=== PATIENT | female | born 1995 ===

== ENCOUNTER 2017-03-31 17:17 | Observation (INO) | payer OTHER ==
--- NOTE | 2017-03-31 18:38 | ED PDOC ---
HPI: Skin/Bite Injury Time Seen by Provider: 03/31/17 17:59 Chief Complaint (Nursing): Abnormal Skin Integrity Chief Complaint (Provider): Abnormal Skin Integrity History Per: Patient History/Exam Limitations: no limitations Onset/Duration Of Symptoms: Days Additional Complaint(s): 21 year old female presents to the emergency department with a complaint of a wound located to the medial aspect of the right forearm for several days. Reports she saw her doctor 2 days ago and was prescribed antibiotics which she did not fill. States she sees yellow puss in the wound with redness and swelling around the wound. Denies fever, chills, trauma, or injury. Tetanus shot not up to date. Past Medical History Reviewed: Historical Data, Nursing Documentation, Vital Signs Vital Signs: Last Vital Signs Temp 97.9 F 03/31/17 17:19 Pulse 64 03/31/17 17:19 Resp 16 03/31/17 17:19 BP 123/58 L 03/31/17 17:19 Pulse Ox 100 03/31/17 20:25 - Medical History PMH: Asthma, Gastritis - Surgical History Surgical History: No Surg Hx - Family History Family History: States: Unknown Family Hx - Immunization History Hx Tetanus Toxoid Vaccination: No Hx Influenza Vaccination: No Hx Pneumococcal Vaccination: No - Home Medications Home Medications: Ambulatory Orders Medication Instructions Recorded No Known Home Med 03/31/17 - Allergies Allergies/Adverse Reactions: Allergies Allergy/AdvReac Type Severity Reaction Status Date / Time No Known Allergies Allergy Verified 11/19/13 16:52 Review of Systems ROS Statement: Except As Marked, All Systems Reviewed And Found Negative (As per HPI, otherwise negative) Constitutional: Negative for: Fever, Chills, Other (Trauma) Skin: Positive for: Other (Abscess to the forearm) Physical Exam - Reviewed Nursing Documentation Reviewed: Yes Vital Signs Reviewed: Yes - Physical Exam Appears: Positive for: Non-toxic, No Acute Distress Head Exam: Positive for: ATRAUMATIC, NORMAL INSPECTION, NORMOCEPHALIC Skin: Positive for: Warm, Dry Cardiovascular/Chest: Positive for: Regular Rate, Rhythm. Negative for: Murmur Respiratory: Positive for: Normal Breath Sounds. Negative for: Accessory Muscle Use, Respiratory Distress Gastrointestinal/Abdominal: Positive for: Normal Exam, Soft. Negative for: Tenderness Back: Positive for: Normal Inspection Extremity: Positive for: Normal ROM, Capillary Refill (Intact. Normal distal sensation. Normal pulses. ), Other ([id number] open abscess with no active drainage at the moment with surrounding edema and erythema noted extending passed the elbow down to the right wrist. ) Neurologic/Psych: Positive for: Alert, Oriented (x3) - Laboratory Results Result Diagrams: 03/31/17 19:45 03/31/17 19:45 - ECG O2 Sat by Pulse Oximetry: 100 (RA) Pulse Ox Interpretation: Normal Medical Decision Making Medical Decision Making: Time: 1829 Initial impression: Abscess to the forearm Initial plan: CMP CBC w/ diff Blood Culture Wound Culture Toradol 30 mg IVP Tetanus 0.5 ml IM Vancomycin 1000 mg in 250 ml Sodium Chloride IV Reevaluation Labs reviewed : wbc is 11. Considering history, exam and lab results, plan will be for further inpt observation for continued IV antibiotics. Diagnostic results discussed with the patient in great detail. Diagnosis of cellulitis with abscess discussed with the patient. Patient informed of the necessary plan to keep the patient for further inpatient observation for continued IV antibiotics which she is agreeable to at this time. Case d/w hospitalist Dr. Mart, agrees with plan for inpt admission. Patient states she fully agrees with and understands further plan of care. I have given the patient opportunity to ask any additional questions. Time: 1999 --Admit to hospital routine for Cellulitis and abscess of upper arm and forearm under the care of Dr. Abraham Mart MD Scribe Attestation: Documented by Karissa Lopez, acting as a scribe for Jennifer Leo PA-C Provider Scribe Attestation: All medical record entries made by the Scribe were at my direction and personally dictated by me. I have reviewed the chart and agree that the record accurately reflects my personal performance of the history, physical exam, medical decision making, and the department course for this patient. I have also personally directed, reviewed, and agree with the discharge instructions and disposition. Disposition - Clinical Impression Clinical Impression: Cellulitis and abscess of upper arm and forearm - Patient ED Disposition Is Patient to be Admitted: Yes Doctor Will See Patient In The: ED Counseled Patient/Family Regarding: Studies Performed, Diagnosis - Disposition Disposition: Routine/Home Disposition Time: 20:00 Condition: STABLE Forms: [employer] (Moroccan) - PA / NEW PATIENT ESCORT / Resident Statement MD/DO has reviewed & agrees with the documentation as recorded.
[2017-03-31] MEDS ORDERED: Vancomycin 1 g Inj ONE (19:39)
[2017-03-31 19:49] LABS: BASO # 0.1 K/uL (0.0-0.2); BASO % 0.6 % (0.0-2.0); EOS # 0.4 K/uL (0.0-0.7); EOS % 3.4 % (0.0-4.0); HEMOGLOBIN 12.4 g/dL (12.0-16.0); LYMPH # 3.3 K/uL (1.0-4.3); LYMPH % 30.3 % (20.0-40.0); MEAN CELL VOLUME 89.9 fl (81.0-99.0); MEAN CORPUSCULAR HGB CONC 32.2 g/dL (33.0-37.0); MEAN PLATELET VOLUME 9.5 fl (7.2-11.7); MONO # 0.8 K/uL (0.0-0.8); MONO % 7.3 % (0.0-10.0); NEUT # 6.4 K/uL (1.8-7.0); NEUT % 58.4 % (50.0-75.0); NRBC % 0.1 % (0.0-0.0); RBC 4.27 Mil/uL (3.80-5.20); RED CELL DISTRIBUTION WIDTH 13.2 % (11.5-14.5)
[2017-03-31 19:58] LABS: ALB/GLOB RATIO 1.2 (1.0-2.1); ALBUMIN 4.4 g/dL (3.5-5.0); ALT/SGPT 35 U/L (9-52); AST/SGOT 22 U/L (14-36); BLOOD UREA NITROGEN 20 mg/dl (7-17); CALCIUM 9.4 mg/dL (8.4-10.2); GFR AFRICAN-AMERICAN > 60; GFR NON-AFRICAN AMERICAN > 60
--- NOTE | 2017-03-31 20:28 | CP.PCM.HP ---
History of Present Illness - History of Present Illness History of Present Illness: CC: R arm cellulitis HPI: This is a 21 y/o female with MHx significant for asthma who comes in in c/ o redness, warmth, tenderness and oozing wound located on R forearm inferior to the elbow. Patient states the lesion initially appeared about 4-5 days ago, and started to get larger. She noted yellow pus/serosanguinous drainage from the wound. She went to a doctor and was prescribed abx, but she didn't fill them and the symptoms became worse, so she came in. She denies f, but has had chills. No n/v/d. She states that this is the third episode of cellulitis that she has had since Dec of last year. She denies any injuries/bites/abrasions prior to onset of cellulitis this time or on in the past. 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 No other contacts with similar infections. ROS: 14 systems reviewed, negative other than HPI MHx: Asthma SHx: None Allergies: NKDA Medications: None Family Hx: No relevant history on review Social Hx: Lives alone, occasional EtOH, no significant tobacco use Present on Admission - Present on Admission Any Indicators Present on Admission: No Past Patient History - Infectious Disease Hx of Infectious Diseases: None - Past Social History Smoking Status: Current Some Days Smoker - PULMONARY Hx Asthma: Yes - GASTROINTESTINAL Hx Gastritis: Yes - GENITOURINARY/GYNECOLOGICAL Hx Urinary Tract Infection: Yes (recurrant) - PSYCHIATRIC Hx Substance Use: No - SURGICAL HISTORY Hx Surgeries: No - ANESTHESIA Hx Anesthesia: No Hx Anesthesia Reactions: No Hx Malignant Hyperthermia: No Meds Allergies/Adverse Reactions: Allergies Allergy/AdvReac Type Severity Reaction Status Date / Time No Known Allergies Allergy Verified 11/19/13 16:52 Physical Exam - Constitutional Appears: No Acute Distress - Head Exam Head Exam: ATRAUMATIC, NORMOCEPHALIC - Eye Exam Eye Exam: EOMI, PERRL - ENT Exam ENT Exam: Mucous Membranes Moist - Neck Exam Neck exam: Positive for: Full Rom - Respiratory Exam Respiratory Exam: Clear to Auscultation Bilateral, NORMAL BREATHING PATTERN - Cardiovascular Exam Cardiovascular Exam: REGULAR RHYTHM, +S1, +S2 - GI/Abdominal Exam GI & Abdominal Exam: Normal Bowel Sounds, Soft - Extremities Exam Additional comments: RUE with redness/warmth/tenderness right below elbow; yellowish/bloody drainage - Neurological Exam Neurological exam: Alert, CN II-XII Intact, Oriented x3 - Psychiatric Exam Psychiatric exam: Normal Affect, Normal Mood - Skin Skin Exam: Dry, Warm Results - Vital Signs Recent Vital Signs: Last Vital Signs Temp 97.9 F 03/31/17 17:19 Pulse 64 03/31/17 17:19 Resp 16 03/31/17 17:19 BP 123/58 L 03/31/17 17:19 Pulse Ox 100 03/31/17 20:25 - Labs Result Diagrams: 03/31/17 19:45 03/31/17 19:45 Labs: Laboratory Results - last 24 hr 03/31/17 03/31/17 19:45 19:45 WBC 11.0 H RBC 4.27 Hgb 12.4 Hct 38.4 MCV 89.9 MCH 29.0 MCHC 32.2 L RDW 13.2 Plt Count 268 MPV 9.5 Neut % (Auto) 58.4 Lymph % (Auto) 30.3 [place] % (Auto) 7.3 Eos % (Auto) 3.4 Baso % (Auto) 0.6 Neut # 6.4 Lymph # 3.3 [place] # 0.8 Eos # 0.4 Baso # 0.1 Sodium 142 Potassium 3.9 Chloride 102 Carbon Dioxide 27 Anion Gap 17 BUN 20 H Creatinine 0.7 Est GFR ( Amer) > 60 Est GFR (Non-Af Amer) > 60 Random Glucose 99 Calcium 9.4 Total Bilirubin 0.4 AST 22 ALT 35 Alkaline Phosphatase 76 Total Protein 8.1 Albumin 4.4 Globulin 3.7 Albumin/Globulin Ratio 1.2 Assessment & Plan (1) Cellulitis and abscess of upper arm and forearm Assessment and Plan: 21 y/o female with RUE cellulitis/abscess. -Obs/med surg -Continue Vanco 1 g q12h IV -Tylenol/Toradol per scale for pain control -SCDs for DVT PPx Status: Acute
[2017-03-31] MEDS ORDERED: Phenylephrine 0.25% NASAL Spray (15ML) NAS PRN (20:51)
[2017-04-01 01:12] VITALS: RESP 18; O2SAT 97
[2017-04-01 07:06] LABS: BASO % 0.4 % (0.0-2.0); EOS # 0.4 K/uL (0.0-0.7); EOS % 3.7 % (0.0-4.0); HEMOGLOBIN 12.6 g/dL (12.0-16.0); LYMPH % 29.3 % (20.0-40.0); MEAN CELL VOLUME 90.7 fl (81.0-99.0); MEAN CORPUSCULAR HEMOGLOBIN 29.4 pg (27.0-31.0); MEAN CORPUSCULAR HGB CONC 32.4 g/dL (33.0-37.0); MEAN PLATELET VOLUME 9.5 fl (7.2-11.7); MONO # 0.9 K/uL (0.0-0.8); MONO % 8.4 % (0.0-10.0); NEUT % 58.2 % (50.0-75.0); RBC 4.3 Mil/uL (3.80-5.20); RED CELL DISTRIBUTION WIDTH 13.1 % (11.5-14.5); WHITE BLOOD COUNT 10.3 K/uL (4.8-10.8)
[2017-04-01 07:23] LABS: BLOOD UREA NITROGEN 18 mg/dl (7-17); CALCIUM 9.1 mg/dL (8.4-10.2); GFR AFRICAN-AMERICAN > 60; GFR NON-AFRICAN AMERICAN > 60
[2017-04-01 07:52] VITALS: BP 95/54; PULSE 64; TEMP 97.6
--- NOTE | 2017-04-01 10:31 | CP.PCM.DIS ---
Provider - Provider Date of Admission: 03/31/17 20:22 Attending physician: Abraham Mart MD Primary care physician: none Time Spent in preparation of Discharge (in minutes): 15 Hospital Course - Lab Results Lab Results: Most Recent Lab Values WBC 10.3 K/uL (4.8-10.8) 04/01/17 05:30 RBC 4.30 Mil/uL (3.80-5.20) 04/01/17 05:30 Hgb 12.6 g/dL (12.0-16.0) 04/01/17 05:30 Hct 39.0 % (34.0-47.0) 04/01/17 05:30 MCV 90.7 fl (81.0-99.0) 04/01/17 05:30 MCH 29.4 pg (27.0-31.0) 04/01/17 05:30 MCHC 32.4 g/dL (33.0-37.0) L 04/01/17 05:30 RDW 13.1 % (11.5-14.5) 04/01/17 05:30 Plt Count 253 K/uL (130-400) 04/01/17 05:30 MPV 9.5 fl (7.2-11.7) 04/01/17 05:30 Neut % (Auto) 58.2 % (50.0-75.0) 04/01/17 05:30 Lymph % (Auto) 29.3 % (20.0-40.0) 04/01/17 05:30 [place] % (Auto) 8.4 % (0.0-10.0) 04/01/17 05:30 Eos % (Auto) 3.7 % (0.0-4.0) 04/01/17 05:30 Baso % (Auto) 0.4 % (0.0-2.0) 04/01/17 05:30 Neut # 6.0 K/uL (1.8-7.0) 04/01/17 05:30 Lymph # 3.0 K/uL (1.0-4.3) 04/01/17 05:30 [place] # 0.9 K/uL (0.0-0.8) H 04/01/17 05:30 Eos # 0.4 K/uL (0.0-0.7) 04/01/17 05:30 Baso # 0.0 K/uL (0.0-0.2) 04/01/17 05:30 Sodium 142 mmol/l (132-148) 04/01/17 05:30 Potassium 4.0 MMOL/L (3.6-5.0) 04/01/17 05:30 Chloride 106 mmol/L (98-107) 04/01/17 05:30 Carbon Dioxide 26 mmol/L (22-30) 04/01/17 05:30 Anion Gap 14 (10-20) 04/01/17 05:30 BUN 18 mg/dl (7-17) H 04/01/17 05:30 Creatinine 0.7 mg/dl (0.7-1.2) 04/01/17 05:30 Est GFR ( Amer) > 60 04/01/17 05:30 Est GFR (Non-Af Amer) > 60 04/01/17 05:30 Random Glucose 95 mg/dL (65-105) 04/01/17 05:30 Calcium 9.1 mg/dL (8.4-10.2) 04/01/17 05:30 Total Bilirubin 0.4 mg/dl (0.2-1.3) 03/31/17 19:45 AST 22 U/L (14-36) 03/31/17 19:45 ALT 35 U/L (9-52) 03/31/17 19:45 Alkaline Phosphatase 76 U/L (38-126) 03/31/17 19:45 Total Protein 8.1 G/DL (6.3-8.2) 03/31/17 19:45 Albumin 4.4 g/dL (3.5-5.0) 03/31/17 19:45 Globulin 3.7 gm/dL (2.2-3.9) 03/31/17 19:45 Albumin/Globulin Ratio 1.2 (1.0-2.1) 03/31/17 19:45 - Hospital Course Hospital Course: 21 y/o female with MHx significant for asthma came in complaining of redness, warmth, tenderness and oozing wound located on R forearm inferior to the elbow. Patient states the lesion initially appeared about 4-5 days ago, and started to get larger. She noted yellow pus/serosanguinous drainage from the wound. She went to a doctor and was prescribed abx, but she didn't fill them and the symptoms became worse, so she came in. She denies fever , but has had chills. No n/v/d. She states that this is the third episode of cellulitis that she has had since Dec of last year. She denies any injuries/bites/abrasions prior to onset of cellulitis this time or on in the past. 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 No other contacts with similar infections. patient wsa placed under observation for cellulitis with abscess started on vanco IV. blood and wound cultures were sent. She is afebrile with normal WBC count. At present with no erythema surrounding the wound opening, no fluctuation , minimal tenderness and minimal drainage. will discharge patient on Bactrim DS po for 7 days patient to follow up with [facility] in 1 week for wound culture results. Counselled patient on hand hygiene and avoiding squeezing and manipulating the wound with other objects. Will discharge patient guilherme martha stable cpntitions Dx: cellulitis and abscess Discharge Exam - Head Exam Head Exam: ATRAUMATIC, NORMOCEPHALIC - Eye Exam Eye Exam: EOMI, Normal appearance, PERRL Pupil Exam: NORMAL ACCOMODATION - ENT Exam ENT Exam: Mucous Membranes Moist, Normal Exam - Neck Exam Neck exam: Full Rom, Normal Inspection - Respiratory Exam Respiratory Exam: Clear to PA & Lateral, NORMAL BREATHING PATTERN. absent: Rales, Rhonchi, Wheezes - Cardiovascular Exam Cardiovascular Exam: REGULAR RHYTHM, RRR, +S1, +S2. absent: JVD - GI/Abdominal Exam GI & Abdominal Exam: Normal Bowel Sounds, Soft. absent: Distended, Guarding, Rebound, Tenderness - Rectal Exam Rectal Exam: Deferred - Extremities Exam Extremities exam: normal capillary refill, normal inspection, pedal pulses present Additional comments: right forearm inferior to elbow , lateral aspect open wound 0.5 x 0.5 cm with no surrounding erythema, minimal drainage - Back Exam Back exam: NORMAL INSPECTION - Neurological Exam Neurological exam: Alert, CN II-XII Intact, Oriented x3, Reflexes Normal - Psychiatric Exam Psychiatric exam: Normal Affect, Normal Mood - Skin Skin Exam: Dry, Normal Color, Warm Discharge Plan - Discharge Medications Prescriptions: Sulfamethoxazole/Trimethoprim [Bactrim DS 800 mg-160 mg] 1 tab PO Q12 #14 tab - Follow Up Plan Condition: STABLE Disposition: HOME/ ROUTINE Patient education suggested?: Yes Instructions: Cellulitis (DC), Cellulitis (GEN) Referrals: [facility] [place] [Outside]
== END 2017-04-01 13:37 | disposition home or self-care (01) ==
LOC: H.ER 17:17 → H.ERHOLD 20:22 → H.MEDSURG1 23:28
PROVIDERS: ADMIT Internal Medicine; ATTEND Internal Medicine
DX: L03.113 Cellulitis of right upper limb (principal); L02.413 Cutaneous abscess of right upper limb; B95.62 Methicillin resistant Staphylococcus aureus infection as the cause of diseases classified elsewhere; J45.909 Unspecified asthma, uncomplicated; K29.70 Gastritis, unspecified, without bleeding; Z23 Encounter for immunization; Z87.440 Personal history of urinary (tract) infections; Z87.891 Personal history of nicotine dependence
CPT/HCPCS: 36415; 80048; 80053; 81025; 85025; 87040; 87070; 87181; 90471; 90715; 96365; 96366; 96375; 99283; G0378; J1885